=== PATIENT | male | born 1965 | race Caucasian/White ===

== ENCOUNTER 2020-02-11 08:38 | Day surgery (SDC) | payer MEDICAID, SELFPAY ==
[2020-02-10 13:33] VITALS: BMI 34.9
[2020-02-11 09:00] VITALS: BMI 34.9
[2020-02-11 10:47] VITALS: BP 124/73; PULSE 59; RESP 18; TEMP 36.4; O2SAT 96
[2020-02-11] MEDS: sodium chloride 0.9% 1,000 ML 30 ML IV (10:47)
--- NOTE | 2020-02-11 10:52 | ANES.PREANE2 ---
Pre-Anesthetic Assessment Pre-Anesthetic Assessment: Height/Weight: Height 1.93 m Weight 130.181 kg Temp Pulse Resp BP Pulse Ox 97.5 F L 59 L 18 124/73 96 02/11/20 10:47 02/11/20 10:47 02/11/20 10:47 02/11/20 10:47 02/11/20 10:47 Preop Diagnosis: Nausea and vomiting Proposed Procedure: Operation Date: 02/11/20 10:05 Proposed Procedures p EGD 29607 R11.2(Not Applicable) - Hay Henley MD Last intake: Intake Last Liquid Date 02/10/20 Last Liquid Time 22:00 Last Solid Date 02/10/20 Last Solid Time 22:00 Social: Social History: Tobacco and No alcohol Exam: Pre-Anes Outpt Exam: alert, oriented x 3, clear to auscultation bilaterally and regular rate & rhythm Airway: Submandibular: WNL Cervical ROM: WNL MP: 2 Dentition: False (upper and lower) History/ROS: No significant history except as noted Pulmonary: Pulmonary: COPD and LUIS CV/HEM: CV/HEM: HTN : : None reported Hepatic: Hepatic: None reported GI: Comments: N/V Metabolic: Metabolic: Hyperlipidemia and Morbid obesity Musc/skel: Musc/skel: Lower Back Pain Neuropsych: Neuropsych: Anxiety and Depression Anesthetic Plan: ASA status: 3 Anesthesia: Anesthesia Evaluation and MAC Risk of > 500 ml blood loss (7ml/kg in children): No Meds/Allergies Current Medications: Current Medications Generic Name Dose Route Start Last Admin Trade Name Freq PRN Reason Stop Dose Admin Sodium Chloride 1,000 mls @ 30 ml s/hr 02/11/20 09:00 02/11/20 10:47 Sodium Chloride 0.9% IV 30 mls/hr .Q24H NINA Administration PFSH Anesthesia PFSH: Medical History Anxiety Hyperlipidemia Hypertension Surgical History History of back surgery History of removal of cyst Status post colonoscopy Family History Mother Diabetes Brother Myocardial infarction Father Myocardial infarction Grandmother Stroke Grandfather Stroke Other Anesthesia complication Denies family history of Bleeding disorder Social History Smoking and tobacco status: current every day smoker Alcohol intake: never Lives independently: Yes Household members: none Current occupational status: disabled History of recent travel: No Data Anesthesia Cardiac Studies: No Data to Display
--- NOTE | 2020-02-11 11:49 | P.HP_ITS ---
Same Day Surgery H&P Indication for Procedure/HPI DATE OF PROCEDURE: February 11, 2020 CHIEF COMPLAINT/INDICATIONFOR SURGICAL PROCEDURE: nausea and vomiting PREOP DIAGNOSIS: Nausea and vomiting PLANNED PROCEDRUE: Operation Date: 02/11/20 10:05 Proposed Procedures p EGD 33733 R11.2(Not Applicable) - Hay Henley MD Medications/Allergies* Home Medications Medication Instructions Recorded Confirmed Type amlodipine 2.5 mg tablet 2.5 mg PO DAILY 12/09/19 02/11/20 History bisoprolol 10 1 tab PO DAILY 12/09/19 02/11/20 History mg-hydrochlorothiazide 6.25 mg tablet cyclobenzaprine 10 mg tablet 10 mg PO Q8H PRN tab 12/09/19 02/11/20 History fluoxetine 10 mg capsule 10 mg PO DAILY 12/09/19 02/11/20 History gabapentin 100 mg capsule 100 mg PO DAILY 12/09/19 02/11/20 History meloxicam 15 mg tablet 15 mg PO DAILY 12/09/19 02/11/20 History omega-3 fatty acids 1,250 mg 1,250 mg PO DAILY 12/09/19 02/11/20 History capsule pravastatin 80 mg tablet 80 mg PO DAILY 12/09/19 02/11/20 History Allergies/Adverse Reactions Allergy/AdvReac Type Severity Reaction Status Date / Time No Known Allergies Allergy Verified 02/11/20 08:54 Current Medications: Generic Name Dose Route Start Last Admin Trade Name Freq PRN Reason Stop Dose Admin Sodium Chloride 1,000 mls @ 30 mls/hr 02/11/20 09:00 02/11/20 10:47 Sodium Chloride 0.9% IV 30 mls/hr .Q24H NINA Administration Pertinent History/Comorbid Conditions* Medical History (Updated 12/09/19 @ 15:06 by Hay Henley MD) Anxiety Hyperlipidemia Hypertension Surgical History (Updated 12/09/19 @ 15:06 by Hay Henley MD) History of back surgery History of removal of cyst Status post colonoscopy Family History (Updated 12/09/19 @ 14:54 by MARIA ISABEL Brody) Diabetes Mother Myocardial infarction Brother Father Anesthesia complication Stroke Grandmother Grandfather Denies family history of Bleeding disorder Social History Smoking and tobacco status: current every day smoker Alcohol intake: never Lives independently: Yes Household members: none Current occupational status: disabled History of recent travel: No Pertinent Exam Findings alert, oriented x 3 and regular rate & rhythm Recommendations Surgery/Procedure today Coding Level of Care Code Acute Speech Correction Consultant for Madison Morillo
[2020-02-11 12:44] VITALS: BP 92/40; PULSE 65; RESP 18; TEMP 36.1; O2SAT 94
[2020-02-11 13:15] VITALS: BP 117/55; PULSE 61; RESP 18; O2SAT 95
== END 2020-02-11 13:20 | disposition home or self-care (01) ==
PROVIDERS: PCP Family Medicine; Visit Provider Surgery
PROC: 0DJ08ZZ Inspection of Upper Intestinal Tract, Via Natural or Artificial Opening Endoscopic (ICD-10-PCS; CPT 43235; principal; 2020-02-11 10:00)
DX: R11.2 Nausea with vomiting, unspecified (principal); K29.70 Gastritis, unspecified, without bleeding; J44.9 Chronic obstructive pulmonary disease, unspecified; I10 Essential (primary) hypertension; E78.5 Hyperlipidemia, unspecified; E66.01 Morbid (severe) obesity due to excess calories; Z68.34 Body mass index [BMI] 34.0-34.9, adult; F17.210 Nicotine dependence, cigarettes, uncomplicated
CPT/HCPCS: 43235; 12345; J2001; J2250; J2704; J7030

== ENCOUNTER 2020-04-15 10:52 | Emergency (ER) | payer MEDICAID, SELFPAY ==
[2020-04-15 11:09] VITALS: BMI 35.9
[2020-04-15 11:13] VITALS: BP 137/84; PULSE 70; RESP 18; TEMP 37.1; O2SAT 95
--- NOTE | 2020-04-15 11:23 | W.ED.GENADLT ---
HPI - General Adult General: Chief complaint: General Medical Stated complaint: NECK PAIN Time Seen by Provider: 04/15/20 11:18 History of Present Illness: HPI narrative: Patient comes in complain about the right side of his neck swelling over the last couple months off and on. Says he never cervical lead to his gums or his jaw or what it might be. Says it radiates from the back of his neck up to the front below the jawline. It was swelled yesterday but not so much today. Also complains about a chronic cough that is been going on for about 4 to 5 months. Patient is a 1 to 2 pack/day smoker. Denies any fever chills drainage are pain inside her shoulder in his mouth. complaint: Neck swelling Onset (ago): month(s) Location: neck (Right side) Radiation: non-radiation Severity: mild Severity scale (1-10): 4 Quality: dull Pain Consistency: intermittent Exacerbating factors: none Associated symptoms: Reports other (Patient does have chronic cough); Deny chest pain, dyspnea, headache(s), nausea, rash or vomiting Review of Systems Narrative: Patient complains about swelling in the right side of his neck intermittently for the last couple months. Denies any jaw or swelling or abscesses. Patient does not have any teeth. Const: Denies: fever(s), chills or body aches Eyes: Denies: change in vision or blurry vision ENMT: Denies: throat pain or nasal congestion Card: Denies: chest pain or dyspnea on exertion Resp: Reports: non-productive cough (Chronic for 4 to 5 months); Denies: dyspnea or productive cough GI: Denies: abdominal pain, nausea or vomiting : Denies: difficulty urinating Musc: Denies: extremity pain Skin/Breast: Denies: rash Neuro: Denies: headache(s) Psych: Denies: anxiety or depression José Luis/Lymph: Denies: easy bruising PFSH ED PFSH: Medical History (Updated 02/26/20 @ 07:38 by Hay Henley MD) Anxiety Gastritis determined by endoscopy Hyperlipidemia Hypertension Surgical History History of back surgery History of removal of cyst Status post colonoscopy Family History Mother Diabetes Brother Myocardial infarction Father Myocardial infarction Grandmother Stroke Grandfather Stroke Other Anesthesia complication Denies family history of Bleeding disorder Social History Smoking and tobacco status: current every day smoker Alcohol intake: never Lives independently: Yes Household members: none Current occupational status: disabled History of recent travel: No Physical Exam Const: COMMON NORMALS: no acute distress, average body habitus and patient oriented x3 HENMT: COMMON NORMALS: normocephalic HEAD & SCALP: normal to inspection and normocephalic FACE & SINUS: normal facial exam Eye: COMMON NORMALS: conjunctivae normal GENERAL EYE: appearance normal, both eyes and all related structures CONJUNCTIVA: Yes conjunctivae normal Neck/C-Spine: COMMON NORMALS: no JVD GENERAL: Yes normal visual inspection, Yes trachea midline, No anterior neck swelling, No lymphadenopathy, Yes tender (Slight posterior right-sided neck), No tracheal deviation, No submandibular swelling, No Meningeal signs present and No Mass present (neck) CERVICAL SPINE: Yes cervical ROM normal Chest: COMMONS NORMALS: normal inspection of the chest Resp: COMMON NORMALS: normal respiratory effort AUSCULTATION: rhonchi (Clears with cough) Cardio: COMMON NORMALS: no JVD, regular rate and regular rhythm RATE: regular rate RHYTHM: regular rhythm GI: COMMON NORMALS: Normal to inspection, nondistended, normoactive bowel sounds present Extremity: COMMON NORMALS: normal to inspection and full ROM Neuro: COMMON NORMALS: patient oriented x3 Course Vital Signs: Vital signs: Vital Signs Temperature 98.8 F 04/15/20 11:13 Pulse Rate 66 04/15/20 11:48 Respiratory Rate 14 04/15/20 11:48 Blood Pressure 122/78 04/15/20 11:48 Pulse Oximetry 95 04/15/20 11:48 Discharge Plan Discharge Prescriptions: No Action amlodipine 2.5 mg tablet 2.5 mg PO DAILY RF: 0 cyclobenzaprine 10 mg tablet 10 mg PO Q8H PRN (Reason: Muscle Spasm) RF: 0 omega-3 fatty acids 1,250 mg capsule 1,250 mg PO DAILY RF: 0 gabapentin 100 mg capsule 100 mg PO DAILY RF: 0 pravastatin 80 mg tablet 80 mg PO DAILY RF: 0 fluoxetine 10 mg capsule 10 mg PO DAILY RF: 0 bisoprolol-hydrochlorothiazide 10-6.25 mg tablet 1 tab PO DAILY RF: 0 meloxicam 15 mg tablet 15 mg PO DAILY RF: 0 Protonix 40 mg tablet,delayed release (DR/EC) 40 mg PO DAILY 42 Days RF: 3 Coding Level of Care Code ED [employer] Print[employer] Supervisor for [place] Fwd Exam Comprehensive
--- NOTE | 2020-04-15 11:32 | CTR_ITS ---
PROCEDURE INFORMATION: Exam: CT Neck Without Contrast Exam date and time: 04/15/2020 11:38 AM Age: 54 years old Clinical indication: Other: Right side neck swelling; Additional info: Right side swelling TECHNIQUE: Imaging protocol: Computed tomography images of the neck without contrast. Radiation optimization: All CT scans at this facility use at least one of these dose optimization techniques: automated exposure control; mA and/or kV adjustment per patient size (includes targeted exams where dose is matched to clinical indication); or iterative reconstruction. COMPARISON: CR Cervical Spine AP/Lat* [id number] 02/26/2017 3:35 PM RADIATION DOSE METRICS: Total DLP (mGy-cm): 963.34 FINDINGS: Brain: The canceling machine operator space is normal. Visualized portions of the brain and orbits are normal. Nasopharynx: fossa of Rosenmuller is normal. Oropharynx: parapharyngeal space normal. Hypopharynx: Piriform sinus is unremarkable. Larynx: the epiglottis, preepiglottic fat and the aryepiglottic folds are normal. The true cords appear normal. Retropharyngeal space: Unremarkable. Submandibular/Parotid glands: submental and submandibular regions are normal. the carotid and parotid spaces are normal. Atrophic left submandibular gland Thyroid: the thyroid gland, the thoracic inlet, the posterior triangles are normal. Lymph nodes: Numerous small nonspecific lymph nodes in the various spaces of the neck. Trachea: Visualized trachea is unremarkable. Lungs: Subtle subpleural nodular density right upper lobe. 4 mm. Follow-up CT chest suggested. Bones/joints: No acute osseous abnormality. Degenerative changes within the cervical spine Soft tissues: Emphysema both paraseptal and centrilobular. Other findings: precervical space is normal. CT/CT neck wo con [id number] IMPRESSION: 1. No appreciable inflammatory process within the neck. Impression. Consider follow-up with IV contrast if indicated. 2. Emphysema both paraseptal and centrilobular. 3. Subtle subpleural nodular density right upper lobe. 4 mm. Follow-up CT chest suggested. Radiation Dose CTDIVOL = (mGy): DLP = 963.34 (mGy-cm)
--- NOTE | 2020-04-15 11:33 | XRR_ITS ---
PROCEDURE INFORMATION: Exam: XR Chest, 1 View Exam date and time: 04/15/2020 12:12 PM Age: 54 years old Clinical indication: Shortness of breath and other: Neck pain, weakness; Patient HX: C/O shortness of breath; Neck pain, weakness; Additional info: Chronic cough TECHNIQUE: Imaging protocol: XR of the chest Views: 1 view. COMPARISON: CR Chest 1 [place] [id number] 04/26/2018 6:59 PM FINDINGS: Lungs: Subtle/mild interstitial airspace disease right lung base. Emphysema Pleural space: Unremarkable. No pleural effusion. No pneumothorax. Heart/Mediastinum: Unremarkable. No cardiomegaly. Bones/joints: Unremarkable. XR/XR chest 1V portable [id number] IMPRESSION: Subtle/mild interstitial airspace disease right lung base. Recommend short-term follow-up two view chest. If persistent, CT.
[2020-04-15 11:48] VITALS: BP 122/78; PULSE 66; RESP 14; O2SAT 95
--- NOTE | 2020-04-15 12:18 | PC.NURSE ---
vo with readback from [facility] provider to hold toradol 60mg im until instructed to adm.
[2020-04-15 13:00] VITALS: BP 134/87; PULSE 63; RESP 16; O2SAT 96
--- NOTE | 2020-04-15 13:03 | CTR_ITS ---
PROCEDURE INFORMATION: Exam: CT Neck With Contrast Exam date and time: 04/15/2020 1:07 PM Age: 54 years old Clinical indication: Mass, lump, or swelling in neck; Patient HX: Swelling of right side of neck; Additional info: Neck swelling TECHNIQUE: Imaging protocol: Computed tomography images of the neck with intravenous contrast. Radiation optimization: All CT scans at this facility use at least one of these dose optimization techniques: automated exposure control; mA and/or kV adjustment per patient size (includes targeted exams where dose is matched to clinical indication); or iterative reconstruction. Contrast material: OMNI 300; Contrast volume: 75 ml; Contrast route: INTRAVENOUS (IV); COMPARISON: CT neck wo con [id number] 04/15/2020 12:07 PM RADIATION DOSE METRICS: Total DLP (mGy-cm): 648.1 FINDINGS: Nasopharynx: Unremarkable. Oropharynx: Unremarkable. No significant tonsillar enlargement. Hypopharynx: Unremarkable. Larynx: Unremarkable. Normal epiglottis. Retropharyngeal space: Unremarkable. Submandibular/Parotid glands: There is asymmetric enlargement, and heterogeneous increased attenuation of, the right parotid gland compared to the left. There are associated small nodules within the parotid gland which may be due lymph nodes. No fluid collections. Asymmetric location of the submandibular glands, but no inflammatory changes present. Thyroid: Not enlarged. No nodules or cysts. Lymph nodes: No pathologically enlarged lymph nodes. Trachea: Visualized trachea is unremarkable. Lungs: Emphysema, more so on the right. Bones/joints: No acute osseous abnormality. Soft tissues: No acute soft tissue abnormality. CT/CT neck w con* [id number] IMPRESSION: Asymmetric enlargement , and heterogeneity, of the right parotid gland. Conceivably this could be due to an acute or chronic inflammatory process. Is this the location of the palpable swelling? Is there pain and tenderness? Radiation Dose CTDIVOL = (mGy): DLP = 648.1 (mGy-cm)
--- NOTE | 2020-04-15 13:03 | CTR_ITS ---
PROCEDURE INFORMATION: Exam: CT Chest With Contrast Exam date and time: 04/15/2020 1:07 PM Age: 54 years old Clinical indication: Abnormal findings; Abnormal radiologic exam of lung or chest; Patient HX: Lesion seen on non contrast CT of neck. ; Additional info: 4mm sub pleural lesion rul TECHNIQUE: Imaging protocol: Computed tomography of the chest with intravenous contrast. Radiation optimization: All CT scans at this facility use at least one of these dose optimization techniques: automated exposure control; mA and/or kV adjustment per patient size (includes targeted exams where dose is matched to clinical indication); or iterative reconstruction. Contrast material: Omnipaque 300; Contrast volume: 75 ml; Contrast route: INTRAVENOUS (IV); COMPARISON: CR XR chest 1V portable [id number] 04/15/2020 12:00 PM RADIATION DOSE METRICS: Total DLP (mGy-cm): 1067.99 FINDINGS: Thyroid: The partially imaged bilateral thyroid lobes are unremarkable. Lungs: A 4.4 mm noncalcified pulmonary nodule is noted in the for anterior apical segment of the right upper lobe (LOC -63). Posterior subpleural low-density 4.8 x 5.5 mm nodule left upper lobe posterior segment (LOC -163). Additional left lower lobe noncalcified nodules in the anterolateral basilar segment measuring 3.4 mm (LOC -198), 7.2 x 3.1 mm (LOC -208), 3.0 mm (LOC -208). Right upper lobe anterior segment noncalcified nodule measuring 3.5 mm (LOC -138). Right apical and superior segment right lower lobe predominant bilateral mild paraseptal and centrilobular pulmonary emphysema. Right lower lobe calcified pulmonary parenchymal granuloma. Pleural space: No pneumothorax. No pleural effusion. Heart: Unremarkable. No cardiomegaly. No pericardial effusion. Aorta: Unremarkable. No aortic aneurysm. Lymph nodes: No enlarged lymph nodes. Kidneys and ureters: Moderate left, mild right renal upper pole cortical scarring. Bones/joints: Mild leftward upper thoracic spinal curvature. Thoracic spine vertebral body marginal osteophytes are noted at multiple levels. Diffuse osteopenia. Moderate chronic T12 vertebral body compression deformity. Soft tissues: Unremarkable. CT/CT chest w con* [id number] IMPRESSION: 1. Noncalcified small bilateral pulmonary nodules. For patients at low risk (minimal or absent history of smoking and of other known risk factors), no routine follow-up is indicated. For patients at high risk (history of smoking or of other known risk factors), consider optional CT at 12 months. (Shabana et al., Fleischner Society, 2017). 2. Pulmonary emphysema. 3. Bilateral renal upper pole cortical scarring. Radiation Dose CTDIVOL = (mGy): DLP = 1067.99 (mGy-cm)
[2020-04-15 13:26] LABS: Basophils % 0.4 %; Eosinophils # 0.3 10^3/uL (0.0-0.8); Eosinophils % 2.8 %; Hematocrit 46.8 % (42.0-52.0); Lymphocytes # 2.5 10^3/uL (0.8-4.8); Mean Corpuscular HGB Conc 32.1 g/dL (30.0-36.0); Mean Corpuscular Hemoglobin 30.9 pg (28.0-34.0); Mean Corpuscular Volume 96.5 fL (80-94); Mean Platelet Volume 10.8 fL (7.4-10.4); Monocytes # 0.7 10^3/uL (0.2-0.9); Monocytes % 6.9 %; Neutrophils # 5.88 10^3/uL (1.8-7.7); Neutrophils % 62.7 %; Nucleated Red Blood Cells % 0 %; Platelet Count 228 10^3/cmm (130-400); Red Blood Count 4.85 10^6/uL (4.1-5.3); White Blood Count 9.4 10^3/uL (4.0-10.0)
[2020-04-15 13:40] LABS: Alanine Aminotransferase 24 U/L (0-41); Albumin Level 4.3 g/dL (3.5-5.2); Alkaline Phosphatase 94 IU/L (40-130); Anion Gap 12.1 (5-19); Aspartate Amino Transferase 33 U/L (0-40); Blood Urea Nitrogen 11 mg/dL (6-20); Calcium 9.2 mg/dL (8.5-10.5); Carbon Dioxide 29 mmol/L (22-29); Chloride 100 mmol/L (98-107); Globulin 3.1 g/dL (1.3-4.6); Glomerular Filtration Rate 88.6 mL/min (90-130); Glucose 97 mg/dL (65-115); Osmolality Calculated 280 mOsm/kg (285-295); Potassium 4.1 mmol/L (3.5-5.1); Sodium 137 mmol/L (136-145); Total Bilirubin 0.4 mg/dL (0.15-1.2); Total Protein 7.4 g/dL (6.6-8.7)
[2020-04-15] MEDS: iohexol 300 mg/mL 100 mL Btl IV ×2 (13:45→13:46)
[2020-04-15 14:29] VITALS: BP 143/100; PULSE 59; RESP 16; O2SAT 100
== END 2020-04-15 15:07 | disposition home or self-care (01) ==
PROVIDERS: Emergency Provider Nurse Practitioner Family; PCP Family Medicine
DX: M54.2 Cervicalgia (principal); I10 Essential (primary) hypertension; E78.5 Hyperlipidemia, unspecified; F17.210 Nicotine dependence, cigarettes, uncomplicated
CPT/HCPCS: 12345; 36415; 70490; 70491; 71045; 71260; 80053; 85025; 99282; 99283; Q9967

== ENCOUNTER 2020-08-12 08:41 | Outpatient (CLI) | payer MEDICAID, SELFPAY ==
--- NOTE | 2020-08-12 08:47 | CT_ITS ---
WS: [id number] CT scan of the neck. Additional two-dimensional coronal and sagittal reconstruction was performed. Clinical Data: PAROTID GLAND SWELLING Comparison: CT neck, 04/15/2020. DLP: 2040.[address] scans at [facility] use at least one of these dose optimization techniques: automat ed exposure control; mA and/or kV adjustment per patient size (includes targeted exams where dose is matched to clinical indication); or iterative reconstruction. Findings: The patient does have asymmetric enlargement of the right parotid gland. There are lymph nodes within the parotid glands. No lymphadenopathy is noted. The remainder of the salivary glands is unremarkabl e. There is no prevertebral soft tissue swelling. The larynx is symmetric. The thyroid gland shows no rmal enhancement. The floor of the mouth and parapharyngeal spaces are normal. The oral cavity is unr emarkable. The carotid arteries bifurcate normally. Vertebral arteries are normal. The cervical spine shows oste oarthritis at C5-C7 with loss of normal lordotic curvature. The lung apices show no abnormalities. Th e portions of the intracranial circulation which are seen demonstrate no abnormalities. Mild ventricu lar dilatation is present with no shift. No erosion of the skull or skull base is seen. The mastoid a ir cells, internal auditory canals, sella turcica, paranasal sinuses and intraorbital contents are no nremarkable. CT/CT neck w con* [id number] Impression: 1. Slight asymmetric enlargement of right parotid gland which could indicate pa rotid infection. No change from before is seen. 2. No other abnormalities are seen.
== END 2020-08-12 08:42 | disposition home or self-care (01) ==
LOC: RADWPI 08:43
PROVIDERS: PCP Nurse Practitioner Family; Visit Provider Nurse Practitioner Family
DX: K11.8 Other diseases of salivary glands (principal); E78.5 Hyperlipidemia, unspecified; I10 Essential (primary) hypertension
CPT/HCPCS: 70491; Q9967

== ENCOUNTER → 2020-10-22 11:06 | Outpatient (BNVA) | payer MEDICAID, SELFPAY | PROVIDERS: PCP Nurse Practitioner Family; Visit Provider Nurse Practitioner Family | DX: M25.521 Pain in right elbow (principal); M25.531 Pain in right wrist | CPT/HCPCS: 73080; 73110 ==

== ENCOUNTER 2020-10-25 21:30 | Emergency (ER) | payer MEDICAID, SELFPAY ==
[2020-10-25 21:54] VITALS: BP 144/90; PULSE 66; RESP 14; TEMP 36.3; O2SAT 98; BMI 36.0
[2020-10-25 23:26] LABS: Basophils # 0.1 10^3/uL (0.0-0.1); Basophils % 0.5 %; Eosinophils # 0.4 10^3/uL (0.0-0.8); Eosinophils % 2.4 %; Hematocrit 49.2 % (42.0-52.0); Hemoglobin 15.8 g/dL (11.7-16.6); Lymphocytes # 2.5 10^3/uL (0.8-4.8); Lymphocytes % 17.2 %; Mean Corpuscular HGB Conc 32.1 g/dL (30.0-36.0); Mean Corpuscular Volume 96.5 fL (80-94); Monocytes # 0.7 10^3/uL (0.2-0.9); Monocytes % 4.4 %; Neutrophils # 10.96 10^3/uL (1.8-7.7); Nucleated Red Blood Cells % 0 %; Platelet Count 242 10^3/cmm (130-400); Red Cell Distribution Width 14.4 % (12.1-15.1); White Blood Count 14.6 10^3/uL (4.0-10.0)
[2020-10-26 00:14] LABS: Alanine Aminotransferase 19 U/L (0-41); Albumin Level 4.3 g/dL (3.5-5.2); Alkaline Phosphatase 106 IU/L (40-130); Aspartate Amino Transferase 20 U/L (0-40); Blood Urea Nitrogen 15 mg/dL (6-20); Carbon Dioxide 25 mmol/L (22-29); Chloride 100 mmol/L (98-107); Globulin 3.7 g/dL (1.3-4.6); Glomerular Filtration Rate 101.5 mL/min (90-130); Glucose 122 mg/dL (65-115); Lipase 27 U/L (13-60); Osmolality Calculated 286 mOsm/kg (285-295); Sodium 137 mmol/L (136-145); Total Bilirubin 0.3 mg/dL (0.15-1.2)
--- NOTE | 2020-10-26 00:14 | CTR_ITS ---
PROCEDURE INFORMATION: Exam: CT Abdomen And Pelvis With Contrast Exam date and time: 10/26/2020 12:26 AM Age: 54 years old Clinical indication: Abdominal pain; Localized; Left lower quadrant (llq); Patient HX: C/O llq abd pain TECHNIQUE: Imaging protocol: Computed tomography of the abdomen and pelvis with intravenous contrast. Radiation optimization: All CT scans at this facility use at least one of these dose optimization techniques: automated exposure control; mA and/or kV adjustment per patient size (includes targeted exams where dose is matched to clinical indication); or iterative reconstruction. Contrast material: OMNI 300; Contrast volume: 95 ml; Contrast route: INTRAVENOUS (IV); COMPARISON: US gall bladder [id number] 04/26/2018 8:25 PM RADIATION DOSE METRICS: Total DLP (mGy-cm): 1836.5 FINDINGS: Liver: Normal. No mass. Gallbladder and bile ducts: Normal. No calcified stones. No ductal dilation. Pancreas: Normal. No ductal dilation. Spleen: Multiple calcifications are seen within the spleen compatible with calcified granulomas. Adrenal glands: Normal. No mass. Kidneys and ureters: Strandy opacities are seen in the left perinephric fascia compatible with some inflammatory changes. There is moderate hydronephrosis and hydroureter seen on the left. There are strandy opacities adjacent to the left ureter compatible with inflammatory changes as well. There is a partially obstructing 2.6 mm distal left ureteral calculus seen at the level of the ureterovesical junction. Stomach and bowel: Unremarkable. No obstruction. No mucosal thickening. Appendix: The appendix is visualized and is normal in configuration. Intraperitoneal space: Unremarkable. No free air. No significant fluid collection. Vasculature: Unremarkable. No abdominal aortic aneurysm. Lymph nodes: Unremarkable. No enlarged lymph nodes. Urinary bladder: Unremarkable as visualized. Reproductive: Unremarkable as visualized. Bones/joints: There is diffuse degenerative disc disease of the thoracolumbar spine. Mild 4.6 mm anterior spondylolisthesis seen at the L4-L5 level likely secondary to the degenerative disc disease and laxity of the longitudinal ligaments. Soft tissues: There are small bilateral inguinal hernias containing fat, left larger than right. CT/CT abdomen pelvis w con* [id number] IMPRESSION: There is a partially obstructing 2.6 mm distal left ureteral calculus at the level of the ureterovesical junction. COMMENTS: Consistent with the [employer]'s Incidental Findings Committee white paper (J Am Peggy Radiol 2018): Any incidental renal lesion less than 1 cm or classified as too small to characterize, or any incidental cystic renal lesion characterized as simple-appearing, is likely benign. No follow-up imaging is recommended for these lesions per consensus recommendations based on imaging criteria. Radiation Dose CTDIVOL = (mGy): DLP = 1836.5 (mGy-cm)
--- NOTE | 2020-10-26 00:17 | ED_ITS ---
HPI - Abdominal Pain General: Chief Complaint: Abdominal Pain Stated Complaint: lower abdominal pain into left side last 2 days Time Seen by Provider: 10/26/20 00:10 Source: patient Mode of arrival: ambulatory Limitations: no limitations History of Present Illness: HPI narrative: 54-year-old male states he had left lower quadrant abdominal pain over the last day. He states it is very sharp in nature and worse with movement. He has had some nausea but denies any vomiting. Has had slight constipation. Denies any fevers. No history of blood in his stools. He denies any history of diverticulitis in the past. Onset (ago): hour(s) Location: LLQ Severity: moderate Quality: stabbing Associated Symptoms: Denies chills, diarrhea, dysuria, fever(s), nausea and vomiting Review of Systems Const: Denies: fever(s), chills, body aches or change in appetite Eyes: Denies: blurry vision or eye discomfort ENMT: Denies: throat pain or dental pain Card: Denies: chest pain Resp: Denies: dyspnea GI: Reports: abdominal pain; Denies: nausea, vomiting or diarrhea : Denies: dysuria Musc: Denies: neck pain or back pain Skin/Breast: Denies: rash Neuro: Denies: headache(s) Psych: Denies: depression José Luis/Lymph: Denies: easy bruising All/Imm: Denies: urticaria PFSH ED PFSH: Medical History (Updated 10/26/20 @ 01:18 by Andrew Jones MD) Anxiety Gastritis determined by endoscopy Hyperlipidemia Hypertension Surgical History History of back surgery History of removal of cyst Status post colonoscopy Family History Mother Diabetes Brother Myocardial infarction Father Myocardial infarction Grandmother Stroke Grandfather Stroke Other Anesthesia complication Denies family history of Bleeding disorder Social History Smoking and tobacco status: current every day smoker Alcohol intake: never Lives independently: Yes Household members: none Current occupational status: disabled History of recent travel: No Physical Exam Const: COMMON NORMALS: no acute distress, patient oriented x3 and healthy appearing HENMT: COMMON NORMALS: normocephalic and atraumatic HEAD & SCALP: normocephalic and atraumatic Eye: COMMON NORMALS: Equal, round and reactive pupils present and EOMs intact bilaterally PUPIL: Yes Equal, round and reactive pupils present Neck/C-Spine: COMMON NORMALS: full ROM and supple Chest: COMMONS NORMALS: normal inspection of the chest and normal palpation of entire chest wall Resp: COMMON NORMALS: normal respiratory effort, No retractions, No use of accessory muscles and clear to auscultation bilaterally AUSCULTATION: clear to auscultation bilaterally Cardio: COMMON NORMALS: regular rate, regular rhythm and No murmurs present (Cardio) RATE: regular rate RHYTHM: regular rhythm GI: COMMON NORMALS: Normal to inspection, nondistended, normoactive bowel sounds present, Soft to palpation and no masses PALPATION: Yes Soft to palpation and Yes Tenderness to palpation present (GI) Details: LLQ Extremity: COMMON NORMALS: normal to inspection and full ROM Neuro: COMMON NORMALS: patient oriented x3, moves all extremities and no focal motor deficits Psych: COMMON NORMALS: mental status grossly normal, Normal thought process present and cooperative THOUGHT PROCESS: Normal thought process present Skin: COMMON NORMALS: no rashes or lesions noted and no wounds GENERAL SKIN EXAM: no rashes or lesions noted Course Vital Signs: Vital signs: Vital Signs Temperature 97.3 F L 10/25/20 21:54 Pulse Rate 66 10/25/20 21:54 Respiratory Rate 14 10/25/20 21:54 Blood Pressure 144/90 10/25/20 21:54 Pulse Oximetry 98 10/25/20 21:54 MDM - Abdominal Pain MDM Narrative: Medical decision making narrative: Justin presents here with left-sided pain CT shows kidney stone likely causing his pain. Patient is well- appearing here and pain is improved. Will discharge him with a urine strainer and he is to follow-up with Dr. Hurd. He is return if worsening. He understands and agrees the plan. Lab Data: Labs: Lab Results 10/25/20 10/25/20 Range/Units 23:10 23:10 WBC 14.6 H (4.0-10.0) 10^3/ uL RBC 5.10 (4.1-5.3) 10^6/u L Hgb 15.8 (11.7-16.6) g/dL Hct 49.2 (42.0-52.0) % MCV 96.5 H (80-94) fL MCH 31.0 (28.0-34.0) pg MCHC 32.1 (30.0-36.0) g/dL RDW 14.4 (12.1-15.1) % Plt Count 242 (130-400) 10^3/c mm MPV 11.0 H (7.4-10.4) fL Neut % (Auto) 75.0 % Lymph % (Auto) 17.2 % [place] % (Auto) 4.4 % Eos % (Auto) 2.4 % Baso % (Auto) 0.5 % Neut # (Auto) 10.96 H (1.8-7.7) 10^3/u L Lymph # (Auto) 2.5 (0.8-4.8) 10^3/u L [place] # (Auto) 0.7 (0.2-0.9) 10^3/u L Eos # (Auto) 0.4 (0.0-0.8) 10^3/u L Baso # (Auto) 0.1 (0.0-0.1) 10^3/u L Nucleated RBC % (a uto) 0 % Nucleated RBCs # 0.0 /100WBC Sodium 137 (136-145) mmol/L Potassium 4.0 (3.5-5.1) mmol/L Chloride 100 (98-107) mmol/L Carbon Dioxide 25 (22-29) mmol/L Anion Gap 16.0 (5-19) BUN 15 (6-20) mg/dL Creatinine 0.8 (0.7-1.2) mg/dL GFR Calculation 101.5 (90-130) mL/min Glucose 122 H (65-115) mg/dL Calculated Osmolal ity 286 (285-295) mOsm/k g Calcium 10.0 (8.5-10.5) mg/dL Total Bilirubin 0.3 (0.15-1.2) mg/dL AST 20 (0-40) U/L ALT 19 (0-41) U/L Alkaline Phosphata se 106 (40-130) IU/L Total Protein 8.0 (6.6-8.7) g/dL Albumin 4.3 (3.5-5.2) g/dL Globulin 3.7 (1.3-4.6) g/dL Lipase 27 (13-60) U/L Imaging Data ^: CT Abd/Pel: Radiologist's impression: [address] [address] [address] Scan Report Signed Patient: Justin Kelsey Unit #: [id number] : 1965 Age/Sex: 54 / M ADM Date: 10/25/20 Loc: ER Room/Bed: Attending Dr: Ordering Provider/Ordering MD: Andrew Jones MD Date of Service: 10/26/20 Procedure(s): CT abdomen pelvis w con* [id number] Accession Number(s): [id number] Report Number: [id number] PROCEDURE INFORMATION: Exam: CT Abdomen And Pelvis With Contrast Exam date and time: 10/26/2020 12:26 AM Age: 54 years old Clinical indication: Abdominal pain; Localized; Left lower quadrant (llq); Patient HX: C/O llq abd pain TECHNIQUE: Imaging protocol: Computed tomography of the abdomen and pelvis with intravenous contrast. Radiation optimization: All CT scans at this facility use at least one of these dose optimization techniques: automated exposure control; mA and/or kV adjustment per patient size (includes targeted exams where dose is matched to clinical indication); or iterative reconstruction. Contrast material: OMNI 300; Contrast volume: 95 ml; Contrast route: INTRAVENOUS (IV); COMPARISON: US gall bladder [id number] 04/26/2018 8:25 PM RADIATION DOSE METRICS: Total DLP (mGy-cm): 1836.5 FINDINGS: Liver: Normal. No mass. Gallbladder and bile ducts: Normal. No calcified stones. No ductal dilation. Pancreas: Normal. No ductal dilation. Spleen: Multiple calcifications are seen within the spleen compatible with calcified granulomas. Adrenal glands: Normal. No mass. Kidneys and ureters: Strandy opacities are seen in the left perinephric fascia compatible with some inflammatory changes. There is moderate hydronephrosis and hydroureter seen on the left. There are strandy opacities adjacent to the left ureter compatible with inflammatory changes as well. There is a partially obstructing 2.6 mm distal left ureteral calculus seen at the level of the ureterovesical junction. Stomach and bowel: Unremarkable. No obstruction. No mucosal thickening. Appendix: The appendix is visualized and is normal in configuration. Intraperitoneal space: Unremarkable. No free air. No significant fluid collection. Vasculature: Unremarkable. No abdominal aortic aneurysm. Lymph nodes: Unremarkable. No enlarged lymph nodes. Urinary bladder: Unremarkable as visualized. Reproductive: Unremarkable as visualized. Bones/joints: There is diffuse degenerative disc disease of the thoracolumbar spine. Mild 4.6 mm anterior spondylolisthesis seen at the L4-L5 level likely secondary to the degenerative disc disease and laxity of the longitudinal ligaments. Soft tissues: There are small bilateral inguinal hernias containing fat, left larger than right. CT/CT abdomen pelvis w con* [id number] IMPRESSION: There is a partially obstructing 2.6 mm distal left ureteral calculus at the level of the ureterovesical junction. COMMENTS: Consistent with the [employer]'s Incidental Findings Committee white paper (J Am Peggy Radiol 2018): Any incidental renal lesion less than 1 cm or classified as too small to characterize, or any incidental cystic renal lesion characterized as simple-appearing, is likely benign. No follow-up imaging is recommended for these lesions per consensus recommendations based on imaging criteria. Discharge Plan Discharge Patient Disposition: Home Clinical Impression: Kidney stone on left side Condition: Stable Prescriptions: [place] 5-325 mg tablet 1 tab PO Q6H PRN (Reason: pain) Qty: 14 RF: 0 ondansetron 4 mg tablet,disintegrating 4 mg PO Q6H PRN (Reason: nausea and vomiting) Qty: 14 RF: 0 No Action amlodipine 2.5 mg tablet 2.5 mg PO DAILY RF: 0 cyclobenzaprine 10 mg tablet 10 mg PO Q8H PRN (Reason: Muscle Spasm) RF: 0 omega-3 fatty acids 1,250 mg capsule 1,250 mg PO DAILY RF: 0 gabapentin 100 mg capsule 100 mg PO DAILY RF: 0 pravastatin 80 mg tablet 80 mg PO DAILY RF: 0 fluoxetine 10 mg capsule 10 mg PO DAILY RF: 0 bisoprolol-hydrochlorothiazide 10-6.25 mg tablet 1 tab PO DAILY RF: 0 meloxicam 15 mg tablet 15 mg PO DAILY RF: 0 Protonix 40 mg tablet,delayed release (DR/EC) 40 mg PO DAILY 30 Days Qty: 30 RF: 3 Discharge Orders: Discharge ED (Routine); Ordered 10/26/20 Ordered By: Andrew Jones Referrals: Amado Hurd MD [Physician] - 1-3 days Jacqueline Almeida FNP [Primary Care Provider] - Discharge Diet: Advance as tolerated Discharge Activity: Resume usual activity Patient Instructions: Kidney Stones (ED) Coding Level of Care Code ED Topline Beading Machine Tender for Chg Fwd Exam Comprehensive
[2020-10-26] MEDS: ondansetron 2 mg/ML SDV 2 mL 4 MG IVP (00:30)
[2020-10-26] MEDS: morphine 4 mg/mL SDV 1 mL IVP (00:31)
[2020-10-26] MEDS: iohexol 300 mg/mL 100 mL Btl IV (00:40)
[2020-10-26] MEDS: HYDROmorphone 1 mg/mL INJ 1 mL IVP (01:38)
[2020-10-26] MEDS: ketorolac 30 mg/mL INJ 15 MG IVP (01:39)
[2020-10-26 02:27] VITALS: BP 145/92; PULSE 62; RESP 18; O2SAT 99
--- NOTE | 2020-10-26 16:18 | DCPLANNER ---
manager package had message to schedule a follow up appointment for patient with Dr. Hurd. manager package called the office of Dr. Hurd, spoke with Celeste, gave clinic patients information. manager package was told that patients information would be printed and reviewed. Clinic will call patient with appointment information.
--- NOTE | 2020-10-30 08:28 | DCPLANNER ---
Patient has a follow up appointment scheduled for Monday, November 04, 2020 at 3:[address] Hurd.
--- NOTE | 2020-12-09 15:04 | DCPLANNER ---
Patient had a follow up appointment scheduled for 11.04.[address] Hurd - patient did attend appointment.
== END 2020-10-26 02:27 | disposition home or self-care (01) ==
PROVIDERS: Emergency Provider Emergency Medicine; PCP Nurse Practitioner Family
DX: N20.0 Calculus of kidney (principal); E78.5 Hyperlipidemia, unspecified; I10 Essential (primary) hypertension; F17.210 Nicotine dependence, cigarettes, uncomplicated
CPT/HCPCS: 12345; 36415; 74177; 80053; 83690; 85025; 96374; 96375; 99282; 99283; J1170; J1885; J2270; J2405; Q9967

== ENCOUNTER 2020-10-28 11:51 | Outpatient (CLI) | payer MEDICAID, SELFPAY ==
--- NOTE | 2020-10-28 12:00 | XR_ITS ---
WS: [id number] Exam: XR KUB [id number] Date/Time of Exam: 10/28/2020 12:00 PM Reason For Exam: KIDNEY STONE No bowel obstruction or free air. No calcifications noted in the region of the kidneys. Splenic calci fications. No suspicious pelvic calcifications noted. Visualized organ margins are intact. XR/XR KUB [id number] IMPRESSION: 1. No acute abdominal finding. 2. No calcifications identified in the region of the kidneys.
== END 2020-10-28 11:52 | disposition home or self-care (01) ==
PROVIDERS: PCP Nurse Practitioner Family; Visit Provider Urology
DX: N20.0 Calculus of kidney (principal)
CPT/HCPCS: 74018; 81003

== ENCOUNTER 2020-11-09 08:29 | Outpatient (CLI) | payer MEDICAID, SELFPAY ==
--- NOTE | 2020-11-09 08:39 | XRR_ITS ---
PROCEDURE INFORMATION: Exam: XR Abdomen, 1 View Exam date and time: 11/09/2020 8:41 AM Age: 54 years old Clinical indication: Condition or disease; Kidney or ureter condition; Calculus (stone) in kidney; Additional info: Kidney stone TECHNIQUE: Imaging protocol: XR of the abdomen. Views: Frontal supine view of the abdomen. 1 View. COMPARISON: 1. CR XR KUB [id number] 10/28/2020 12:[address] abdomen pelvis w con* [id number] 10/26/2020 12:30:18 AM FINDINGS: Gastrointestinal tract: Unremarkable. No bowel dilation. Organs: Left ureterovesical junction demonstrated on prior CT study not definitely identified. No upper urinary tract calcifications identified. Bones/joints: Bilateral lower lumbar facet primary osteoarthritis. Lumbar spine vertebral body marginal osteophytes are noted at multiple levels. XR/XR KUB [id number] IMPRESSION: Left ureterovesical junction demonstrated on prior CT study not definitely identified.
== END 2020-11-09 08:30 | disposition home or self-care (01) ==
LOC: RAD 08:30
PROVIDERS: PCP Nurse Practitioner Family; Visit Provider Urology
DX: N20.0 Calculus of kidney (principal)
CPT/HCPCS: 74018

== ENCOUNTER → 2020-11-13 13:25 | Outpatient (BNVA) | payer MEDICAID, SELFPAY | PROVIDERS: PCP Nurse Practitioner Family; Visit Provider Nurse Practitioner Family | DX: M25.342 Other instability, left hand (principal) | CPT/HCPCS: 73130 ==

== ENCOUNTER → 2020-11-23 13:55 | Outpatient (BNVA) | payer MEDICAID, SELFPAY | PROVIDERS: PCP Nurse Practitioner Family; Referring Provider Nurse Practitioner Family; Visit Provider Specialist | DX: S62.653A Nondisplaced fracture of middle phalanx of left middle finger, initial encounter for closed fracture (principal); X58.XXXA Exposure to other specified factors, initial encounter | CPT/HCPCS: 73140 ==

== ENCOUNTER 2020-11-23 14:33 | Outpatient (CLI) | payer MEDICAID, SELFPAY | END 2020-11-23 14:34 | disposition home or self-care (01) | LOC: SPT 14:42 | PROVIDERS: PCP Nurse Practitioner Family; Visit Provider Specialist | DX: Z46.89 Encounter for fitting and adjustment of other specified devices (principal); S62.653D Nondisplaced fracture of middle phalanx of left middle finger, subsequent encounter for fracture with routine healing; X58.XXXD Exposure to other specified factors, subsequent encounter | CPT/HCPCS: L3807 ==

== ENCOUNTER → 2020-12-03 10:32 | Outpatient (BNVA) | payer MEDICAID, SELFPAY | PROVIDERS: PCP Nurse Practitioner Family; Visit Provider Specialist | DX: S62.653A Nondisplaced fracture of middle phalanx of left middle finger, initial encounter for closed fracture (principal); X58.XXXA Exposure to other specified factors, initial encounter | CPT/HCPCS: 73140 ==

== ENCOUNTER → 2020-12-31 10:47 | Outpatient (BNVA) | payer MEDICAID, SELFPAY | PROVIDERS: PCP Nurse Practitioner Family; Visit Provider Specialist | DX: S62.653A Nondisplaced fracture of middle phalanx of left middle finger, initial encounter for closed fracture (principal); X58.XXXA Exposure to other specified factors, initial encounter | CPT/HCPCS: 73140 ==

== ENCOUNTER → 2021-03-02 14:22 | Outpatient (BNVA) | payer MEDICAID, SELFPAY | PROVIDERS: PCP Nurse Practitioner Family; Visit Provider Podiatrist Foot & Ankle Surgery | DX: M79.671 Pain in right foot (principal) | CPT/HCPCS: 73630; 87070; 87075; 87205 ==

== ENCOUNTER 2021-03-04 10:00 | Outpatient (CLI) | payer MEDICAID, SELFPAY | END 2021-03-04 10:01 | disposition home or self-care (01) | LOC: SPT 10:00 | PROVIDERS: PCP Nurse Practitioner Family; Visit Provider Podiatrist Foot & Ankle Surgery | DX: Z46.89 Encounter for fitting and adjustment of other specified devices (principal); L97.512 Non-pressure chronic ulcer of other part of right foot with fat layer exposed | CPT/HCPCS: 97760; L4361 ==

== ENCOUNTER 2021-06-15 20:00 | Outpatient (CLI) | payer MEDICAID, SELFPAY | END 2021-06-15 20:01 | disposition home or self-care (01) | LOC: SLEEP 06-16 11:29 | PROVIDERS: PCP Nurse Practitioner Family; Visit Provider Nurse Practitioner Family | DX: G47.10 Hypersomnia, unspecified (principal); R06.83 Snoring; R53.83 Other fatigue; G47.33 Obstructive sleep apnea (adult) (pediatric); G47.36 Sleep related hypoventilation in conditions classified elsewhere | CPT/HCPCS: 95810 ==

== ENCOUNTER → 2021-07-01 13:27 | Outpatient (BNVA) | payer MEDICAID, SELFPAY | PROVIDERS: PCP Nurse Practitioner Family; Referring Provider Nurse Practitioner Family; Visit Provider Specialist | DX: R20.0 Anesthesia of skin (principal); R20.2 Paresthesia of skin; F17.200 Nicotine dependence, unspecified, uncomplicated | CPT/HCPCS: 95908 ==

== ENCOUNTER 2021-08-23 12:49 | Outpatient (CLI) | payer MEDICAID, SELFPAY ==
--- NOTE | 2021-08-23 12:59 | CT_ITS ---
WS: [id number] CT NECK TECHNIQUE: Noncontrast CT of the neck with coronal and sagittal reformatted images. CLINICAL INFORMATION: PAROTID GLAND SWELLING COMPARISON: August 12, 2020, April 15, 2020. DLP: 1840.[address] scans at [facility] use at least one of these dose optimization techniques: automated e xposure control; mA and/or kV adjustment per patient size (includes targeted exams where dose is matc hed to clinical indication); or iterative reconstruction. FINDINGS: Slight asymmetric enlargement of the right parotid gland with increased density similar to the prior examinations. This can be seen with parotiditis. No visualized obstructing calculi. Incidental intrap arotid lymph nodes. No visualized obstructing salivary calculi. Normal submandibular glands. A few ti ny punctate calcifications in the parotid glands. Mastoid air cells are well aerated. Paranasal sinuses are well aerated. Paranasal sinuses partially v isualized. Normal posterior nasopharynx. Normal parapharyngeal fat. No evidence of supraglottic or glottic mass. Normal epiglottis. Normal subglottic airway. Lung apices are well aerated. Mild cervical curve. Mild spondylitic changes cervical spine. CT/CT neck wo con [id number] IMPRESSION: 1. Increased density with slight asymmetric enlargement of the right parotid g land compared to the left. Trace suggestion of surrounding inflammation and thi ckening of the platysma. Recommend correlation for parotiditis. This is similar to the prior examinations. No visualized obstructing calculi. 2. Salivary glands otherwise normal in appearance. 3. No supraglottic or glottic mass. 4. No cervical lymphadenopathy. 5. Mild spondylitic changes cervical spine.
== END 2021-08-23 12:50 | disposition home or self-care (01) ==
PROVIDERS: PCP Nurse Practitioner Family; Visit Provider Nurse Practitioner Family
DX: K11.8 Other diseases of salivary glands (principal)
CPT/HCPCS: 70490

== ENCOUNTER 2021-08-25 13:08 | Outpatient (CLI) | payer MEDICAID, SELFPAY ==
--- NOTE | 2021-08-25 13:17 | CT_ITS ---
WS: [id number] LDCT LUNG CANCER SCREENING HISTORY: NICOTINE Dependence, cigarettes TECHNIQUE: Axial imaging performed from the apices to 1 cm below the costophrenic angles. Coronal and sagittal reformats are submitted with axial MIP series. All CT scans at [facility] use at least one of these dose optimization techniques: automated exposure control; mA and/or kV adjustment per patient size (includes targeted exams where dose is matched to clinical indication); or iterativ e reconstruction. DLP: 60.52 mGy.cm DIvol: 1.58 mGy COMPARISON: 04/15/2020 Diagnostic quality: Satisfactory Lung Nodules: No noncalcified pulmonary nodules or endobronchial lesions. There is a calcified granul amrita RIGHT lower lobe. Lungs: Paraseptal emphysematous changes. Heart: Normal size heart. No pericardial effusion. Small mediastinal and hilar lymph nodes maintain t heir fatty nora. Other findings: Mild curvature thoracic spine. No destructive bone lesions. CT/CT lung screening [id number] IMPRESSION: LUNG-RADS: 2-Benign Appearance or Behavior FOLLOW UP: 12 Month: Continue annual screening with LDCT OTHER FINDINGS (S MODIFIER): None.
== END 2021-08-25 13:09 | disposition home or self-care (01) ==
LOC: RAD 13:09
PROVIDERS: PCP Nurse Practitioner Family; Visit Provider Nurse Practitioner Family
DX: Z12.2 Encounter for screening for malignant neoplasm of respiratory organs (principal); F17.210 Nicotine dependence, cigarettes, uncomplicated
CPT/HCPCS: 71271

== ENCOUNTER 2022-08-23 10:26 | Outpatient (CLI) | payer MEDICAID, SELFPAY ==
--- NOTE | 2022-08-23 10:53 | XRR_ITS ---
PROCEDURE INFORMATION: Exam: XR Lumbosacral Spine Exam date and time: 08/23/2022 10:59 AM Age: 56 years old Clinical indication: Other: Low back pain; Prior surgery; Surgery type: L spine; Additional info: Lumbar spine degenerative disc dz TECHNIQUE: Imaging protocol: Radiologic exam of the lumbosacral spine. Views: 2 or 3 views. COMPARISON: CR XR lumbar spine 2-3V* [id number] 04/25/2016 3:11 PM FINDINGS: Bones/joints: Listhesis at L/4/5 is 12 mm on extension. It is 12 mm on flexion. Is 12 mm on neutral positioning. Arthritic changes are noted most severe at L4/5 with a suspected pars defects at L4/5. Soft tissues: Unremarkable. XR/XR lumbar spine f/e only [id number] IMPRESSION: Stable listhesis.
== END 2022-08-23 10:27 | disposition home or self-care (01) ==
LOC: RAD 10:30
PROVIDERS: PCP Nurse Practitioner Family; Visit Provider Nurse Practitioner Family
DX: M51.36 Other intervertebral disc degeneration, lumbar region (principal)
CPT/HCPCS: 72120

== ENCOUNTER → 2022-09-22 11:11 | Outpatient (BNVA) | payer MEDICAID, SELFPAY | PROVIDERS: PCP Nurse Practitioner Family; Visit Provider Orthopaedic Surgery | DX: Z98.890 Other specified postprocedural states (principal); M43.16 Spondylolisthesis, lumbar region | CPT/HCPCS: 99204 ==

== ENCOUNTER 2022-10-28 11:41 | Outpatient (CLI) | payer MEDICAID, SELFPAY ==
--- NOTE | 2022-10-28 13:00 | IR_ITS ---
WS: [id number] LUMBAR MYELOGRAM HISTORY: pain COMPARISON: 08/21/2022 FLUOROSCOPY TIME: 1min [id number] # of spot films: 5 Procedure, risks and complications were explained to the patient. Risks including bleeding, infection , headaches, allergic reaction and seizures. Consent has been obtained. With the patient in prone position the skin over the lumbar region is cleansed with ChloraPrep and an esthetized with lidocaine. 22-gauge spinal needle is inserted into the thecal sac at the appropriate level determined by fluoroscopy. Omnipaque 240; 12 ml is injected slowly under fluoroscopy with no co mplications. Needle bevel is perpendicular to the longitudinal fibers of the dura. Stylet is reinsert ed prior to removal of the needle. Patient tolerated the procedure well. Patient will proceed to CT f or further evaluation. L4 anterolisthesis by 5.6 mm. Severe facet joint arthritis L4-5 and L5-S1. Severe disc space narrowin g at L5-S1. There is an abrupt termination of the contrast column at L4-5 due to severe stenosis. IR/[place] [id number] IMPRESSION: 1. Grade 1 anterolisthesis of L4. 2. Severe central canal stenosis at L4-5. This level will be better described on the CT to follow.
--- NOTE | 2022-10-28 13:25 | CT_ITS ---
WS: [id number] CT MYELOGRAM LUMBAR SPINE HISTORY: low back pain TECHNIQUE: Contiguous 2.0 mm axial imaging performed from T12 through the mid sacral level. Bone and soft tissue windows reviewed. Sagittal and coronal reformats are submitted and reviewed. DLP: 1177.[address] scans at [facility] use at least one of these dose optimization techniques: automated e xposure control; mA and/or kV adjustment per patient size (includes targeted exams where dose is matc hed to clinical indication); or iterative reconstruction. COMPARISON: 03/28/2016 Good injection of contrast into the thecal sac. L4 anterolisthesis by 7.9 mm. No pars defects. Degene rative disc disease with air at L1-2 and L4-5. No fractures. Severe disc space narrowing at L5-S1. Th ere is also marked narrowing of the T12-L1 disc space which may be partially calcified. Mild anterior wedging of T12. No acute fractures. L1-L2: Mild diffuse annular disc bulging encroaching upon the ventral thecal sac. Very mild central s tenosis. L2-L3: Mild diffuse annular disc bulging and osteophytic ridging. Mild central stenosis. Mild facet a rthritis. L3-L4: Mild annular disc bulging with facet joint arthritis. Mild central and bilateral subarticular recess encroachment. L4-L5: Abrupt termination of the contrast column at the disc level. Severe central and bilateral suba rticular recess stenosis and foraminal stenosis. Stenosis due to combination of disc disease in the a nterolisthesis of L4 along with large hypertrophic osteophytes extending into the thecal sac and liga mentum flavum hypertrophy. Asymmetric disc bulging on the LEFT. L5-S1: Very minimal contrast extends beyond the L4-5 disc level due to the severe stenosis. No centra l stenosis. There is a laminectomy defect on the RIGHT. Hypertrophic bone formation encroaching into the subarticular recesses with moderate to severe bilateral foraminal stenosis. CT/CT lumbar spine w con [id number] IMPRESSION: 1. Severe central, bilateral subarticular recess and foraminal stenosis at L4- 5. There is a complete termination of the contrast column due to the high-grade stenosis. Similar findings with progression since 2015. 2. L4 anterolisthesis by 7.9 mm. 3. Moderate to severe bilateral foraminal stenosis and subarticular recess enc roachment at L5-S1. RIGHT hemilaminectomy defect also at this level. 4. Mild central stenosis at L2-3. 5. Mild central and bilateral subarticular recess stenosis at L3-4.
[2022-10-28] MEDS: iohexol 240 mg/mL 50 mL Btl INTRATHECA (13:36)
== END 2022-10-28 11:42 | disposition home or self-care (01) ==
LOC: RAD 11:41
PROVIDERS: PCP Nurse Practitioner Family; Visit Provider Orthopaedic Surgery
DX: M54.50 Low back pain, unspecified (principal); M48.07 Spinal stenosis, lumbosacral region; M48.061 Spinal stenosis, lumbar region without neurogenic claudication
CPT/HCPCS: 62304; 72132; Q9966

== ENCOUNTER → 2022-12-06 11:35 | Outpatient (BNVA) | payer MEDICAID, SELFPAY | PROVIDERS: PCP Nurse Practitioner Family; Visit Provider Physician Assistant | DX: M43.16 Spondylolisthesis, lumbar region (principal); M48.062 Spinal stenosis, lumbar region with neurogenic claudication | CPT/HCPCS: 99213 ==

== ENCOUNTER 2022-12-09 13:21 | Emergency (ER) | payer MEDICAID, SELFPAY ==
[2022-12-09 13:25] VITALS: BP 104/49; PULSE 88; RESP 18; TEMP 36.7; O2SAT 94
--- NOTE | 2022-12-09 13:34 | XR_ITS ---
WS: [id number] Left knee, 3 views, 12/09/2022 Clinical Data: left knee pain-twist injury Comparison: None. Findings: No fractures or dislocations are seen. The joint spaces are normal. The patella is intact. The soft t issues are unremarkable. XR/XR knee LT 3V* [id number] Impression: Negative left knee. Kellgren-Akira Classification: grade 0 (none): definite absence of x-ray alan nges of osteoarthritis
--- NOTE | 2022-12-09 13:54 | W.ED.EXTPRO ---
HPI - Extremity Problem General: Chief complaint: Extremity Injury, Lower Stated complaint: Left knee injury Time Seen by Provider: 12/09/22 13:34 History of Present Illness: Patient is a 57-year-old male comes to the ED with left knee injury and pain. Symptoms started couple days ago when he twisted his knee when standing up from chair. Denies any other injury or trauma to cause pain. He rates pain currently a 7 out of 10 at its located on the lateral aspect of his knee. Associated symptoms: Deny chest pain, fever(s) or rash Review of Systems Const: Denies: fever(s), chills or fatigue Eyes: Denies: change in vision or eye discomfort ENMT: Denies: throat pain, odynophagia, nasal discharge or nasal congestion Card: Denies: chest pain, palpitations, edema, swelling of feet/ankles, dyspnea on exertion or orthopnea Resp: Denies: dyspnea, productive cough or non-productive cough GI: Denies: abdominal pain, nausea, vomiting, diarrhea, constipation or hematochezia : Denies: flank pain, difficulty urinating, dysuria or hematuria Musc: Reports: extremity pain (Left knee); Denies: neck pain, back pain or extremity swelling Skin/Breast: Denies: rash or new lesions Neuro: Denies: headache(s), numbness in extremities or weakness in extremities PFS ED PFSH: Medical History Anxiety Atypical chest pain Calculus of distal left ureter Dizziness Fatigue Gastritis determined by endoscopy Hydronephrosis, left Hyperlipidemia Hypertension Left ventricular diastolic dysfunction Numbness and tingling of both lower extremities Numbness and tingling of both upper extremities Smoking Weakness Surgical History History of back surgery History of removal of cyst Status post colonoscopy Family History Mother , AT AGE 80 Diabetes Cancer Dementia Brother Myocardial infarction CAD (coronary artery disease) Suicide Lung disease Father , AT AGE 58 Myocardial infarction CAD (coronary artery disease) Grandmother Stroke Grandfather Stroke Sister Diabetes Family/Other Chronic kidney disease (CKD) Diabetes Denies family history of Clotting disorder Anesthesia complication Bleeding disorder Social History Smoking and tobacco status: current every day smoker Alcohol intake: never Lives independently: Yes Household members: none Marital status: Current occupational status: disabled Physical Exam Const: COMMON NORMALS: patient oriented x3 HENMT: COMMON NORMALS: normocephalic HEAD & SCALP: normocephalic MOUTH: Normal oral and palatal mucosa present THROAT: posterior oropharynx normal and uvula midline Neck/C-Spine: COMMON NORMALS: supple GENERAL: Yes normal visual inspection Resp: COMMON NORMALS: normal respiratory effort, No retractions, No use of accessory muscles and clear to auscultation bilaterally AUSCULTATION: clear to auscultation bilaterally Cardio: COMMON NORMALS: regular rate, regular rhythm, S1 normal heart sound present, S2 normal heart sound present, No gallops present (Cardio), No clicks present (Cardio), No murmurs present (Cardio) and Peripheral pulses 2+ throughout RATE: regular rate RHYTHM: regular rhythm HEART SOUNDS: S1 normal heart sound present and S2 normal heart sound present PERIPHERAL PULSES: Peripheral pulses 2+ throughout GI: COMMON NORMALS: Normal to inspection, nondistended, normoactive bowel sounds present, Soft to palpation, non-tender and no masses PALPATION: Yes Soft to palpation : COMMON NORMALS: Yes no CVA tenderness BLADDER/KIDNEY EXAM: Yes no CVA tenderness Back/Pelvis: COMMON NORMALS: no CVA tenderness Extremity: NARRATIVE EXTREMITY EXAM: Left knee?no visible injury or deformity seen. Mild tenderness to lateral aspect of knee. Full range of motion. Neurovascular intact. Neuro: COMMON NORMALS: patient oriented x3 GAIT: Yes Normal gait present Skin: GENERAL SKIN EXAM: dry skin Course Vital Signs: Vital signs: Vital Signs Temperature 98.0 F 12/09/22 13:25 Pulse Rate 88 12/09/22 13:25 Respiratory Rate 18 12/09/22 13:25 Blood Pressure 104/49 12/09/22 13:25 Pulse Oximetry 94 12/09/22 13:25 Oxygen Delivery Me thod 12/09/22 13:25 MDM - Extremity (Nontraumatic) Medical Decision Making Patient is a 57-year-old male comes to the ED with left knee injury and pain. Symptoms started couple days ago when he twisted his knee when standing up from chair. Denies any other injury or trauma to cause pain. He rates pain currently a 7 out of 10 at its located on the lateral aspect of his knee.vitals stable. Left knee?no visible injury or deformity seen. Mild tenderness to lateral aspect of knee. Full range of motion. Neurovascular intact. Left knee x-ray showed no acute fractures or findings. Patient diagnosed with left knee sprain and was stable for discharge home. Told to rest, ice and elevate leg to help with symptoms. Follow-up with PCP within the next week for reevaluation. Patient understood and agreed with plan. Lab Data Radiology Impressions Knee X-Ray 12/09/22 13:34 Impression: Negative left knee. Kellgren-Akira Classification: grade 0 (none): definite absence of x-ray changes of osteoarthritis Discharge Plan Discharge Patient Disposition: Home Clinical Impression: Left knee sprain Qualifiers: Encounter type: initial encounter Involved ligament of knee: unspecified ligament Qualified Code(s): S83.92XA - Sprain of unspecified site of left knee, initial encounter Condition: Stable Prescriptions: No Action amlodipine 2.5 mg tablet 2.5 mg PO DAILY cyclobenzaprine 10 mg tablet 10 mg PO Q8H PRN (Reason: Muscle Spasm) omega-3 fatty acids 1,250 mg capsule 1,250 mg PO DAILY gabapentin 100 mg capsule 100 mg PO DAILY fluoxetine 10 mg capsule 10 mg PO DAILY bisoprolol-hydrochlorothiazide 10-6.25 mg tablet 1 tab PO DAILY (DME) TKO See Rx Instructions .Route .MEDSUPPLY Qty: 1 0RF Rx Instructions: As directed (DME) Benjie Sylvester See Rx Instructions .ROUTE .MEDSUPPLY Qty: 1 0RF Rx Instructions: As directed. pravastatin 80 mg tablet 80 mg PO DAILY Qty: 90 3RF Protonix 40 mg tablet,delayed release (DR/EC) 40 mg PO DAILY 30 Days Qty: 30 3RF [place] 5-325 mg tablet 1 tab PO Q6H PRN (Reason: pain) Qty: 14 0RF ondansetron 4 mg tablet,disintegrating 4 mg PO Q6H PRN (Reason: nausea and vomiting) Qty: 14 0RF hydrocodone-acetaminophen 5-325 mg tablet 1 tab PO Q6H PRN (Reason: pain) Qty: 14 0RF Discharge Orders: Discharge ED (Routine); Ordered 12/09/22 Ordered By: Anthony Laguna Referrals: Jacqueline Almeida FNP [Primary Care Provider] - Discharge Diet: Regular Discharge Activity: Increase activity as tolerated Patient Instructions: Knee Sprain (ED), Knee Pain (ED) Activity Restrictions/Additional Instructions: Follow-up with medical provider as directed in the next 5 to 7 days reevaluation. Rest, ice and elevate right knee. Take medications as prescribed. Return to the ER or your medical provider if condition worsens. Please read and understand discharge instructions. Thank you for choosing [facility] for your healthcare needs today. Please realize this is an emergency room and that we are providing you with a medical screening exam and this may not be complete and all inclusive of all the testing and or work up that you may need to determine your ailment or severity of your illness. It is very important that you follow up as instructed or that you return to the Emergency Department should you have concerns or if your condition changes or worsens in any way. Coding Level of Care Code ED Retail Pharmacy Manager for Madison Morillo
== END 2022-12-09 14:20 | disposition home or self-care (01) ==
PROVIDERS: Emergency Provider Physician Assistant; PCP Nurse Practitioner Family
DX: S83.92XA Sprain of unspecified site of left knee, initial encounter (principal); I10 Essential (primary) hypertension; E78.5 Hyperlipidemia, unspecified; F17.200 Nicotine dependence, unspecified, uncomplicated; X50.1XXA Overexertion from prolonged static or awkward postures, initial encounter
CPT/HCPCS: 73562; 99283

== ENCOUNTER 2022-12-09 17:29 | Emergency (ER) | payer MEDICAID, SELFPAY ==
--- NOTE | 2022-12-09 | XRR_ITS ---
PROCEDURE INFORMATION: Exam: XR Left Elbow Exam date and time: 12/09/2022 5:51 PM Age: 57 years old Clinical indication: Injury or trauma; Fall; Sprain or strain; Elbow; Left TECHNIQUE: Imaging protocol: Radiologic exam of the left elbow. Views: 3 or more views. COMPARISON: CR XR finger LT min 2V [id number] 12/31/2020 10:53 AM FINDINGS: Bones/joints: Normal. Soft tissues: Normal. XR/XR elbow LT min 3V* [id number] IMPRESSION: No acute findings.
[2022-12-09 17:36] VITALS: BP 145/93; PULSE 133; RESP 18; TEMP 36.7; O2SAT 97
--- NOTE | 2022-12-09 17:47 | XRR_ITS ---
PROCEDURE INFORMATION: Exam: XR Left Forearm Exam date and time: 12/09/2022 5:51 PM Age: 57 years old Clinical indication: Injury or trauma; Fall; Sprain or strain; Elbow; Left TECHNIQUE: Imaging protocol: Radiologic exam of the left forearm. Views: 2 views. COMPARISON: CR XR finger LT min 2V [id number] 12/31/2020 10:53 AM FINDINGS: Bones/joints: Normal. Soft tissues: Normal. XR/XR forearm LT 2V [id number] IMPRESSION: No acute findings.
--- NOTE | 2022-12-09 17:47 | XRR_ITS ---
PROCEDURE INFORMATION: Exam: XR Left Ribs with PA Chest Exam date and time: 12/09/2022 5:51 PM Age: 57 years old Clinical indication: Injury or trauma; Fall; Rib area, left side; Sprain or strain TECHNIQUE: Imaging protocol: Radiologic exam of the left ribs with PA chest. Views: 3 views COMPARISON: CT lung screening [id number] 08/25/2021 1:40 PM FINDINGS: Lungs: Minimal bibasilar atelectasis. Pleural spaces: Unremarkable. No pleural effusion. No pneumothorax. Heart/Mediastinum: Unremarkable. No cardiomegaly. Bones/joints: No acute displaced rib fractures identified in the left ribs. On same day CT chest a nondisplaced right 4th anterior rib fracture was seen. XR/XR ribs LT mn 3V w CXR1V [id number] IMPRESSION: 1. Negative left ribs. 2. Minimal bibasilar atelectasis.
--- NOTE | 2022-12-09 17:48 | ED_ITS ---
HPI - Fall General: Chief Complaint: Fall Stated Complaint: Fall from ladder Left side pain Time Seen by Provider: 12/09/22 17:41 Source: patient Mode of arrival: ambulatory Limitations: no limitations History of Present Illness: 57-year-old male states he was cleaning his gutters just before arrival and fell off his ladder he states it is roughly 16 foot fall he landed on his left side he states he has left arm pain along with left rib pain he rates his pain an 8 out of 10 he denies any other injuries denies hitting his head denies any neck pain denies any abdominal pain he is ambulatory. Associated symptoms-after fall: Reports chest pain; Denies abdominal pain or headache(s) Review of Systems Const: Denies: fever(s), chills, body aches or change in appetite Eyes: Denies: blurry vision or eye discomfort ENMT: Denies: throat pain or dental pain Card: Reports: chest pain Resp: Denies: dyspnea GI: Denies: abdominal pain, nausea, vomiting or diarrhea : Denies: dysuria Musc: Reports: extremity pain Skin/Breast: Denies: rash Neuro: Denies: headache(s) Psych: Denies: depression José Luis/Lymph: Denies: easy bruising All/Imm: Denies: urticaria PFSH ED PFSH: Medical History Anxiety Atypical chest pain Calculus of distal left ureter Dizziness Fatigue Gastritis determined by endoscopy Hydronephrosis, left Hyperlipidemia Hypertension Left ventricular diastolic dysfunction Numbness and tingling of both lower extremities Numbness and tingling of both upper extremities Smoking Weakness Surgical History History of back surgery History of removal of cyst Status post colonoscopy Family History Mother , AT AGE 80 Diabetes Cancer Dementia Brother Myocardial infarction CAD (coronary artery disease) Suicide Lung disease Father , AT AGE 58 Myocardial infarction CAD (coronary artery disease) Grandmother Stroke Grandfather Stroke Sister Diabetes Family/Other Chronic kidney disease (CKD) Diabetes Denies family history of Clotting disorder Anesthesia complication Bleeding disorder Social History Smoking and tobacco status: current every day smoker Alcohol intake: never Lives independently: Yes Household members: none Marital status: Current occupational status: disabled Physical Exam Const: COMMON NORMALS: no acute distress, patient oriented x3 and healthy appearing HENMT: COMMON NORMALS: normocephalic and atraumatic HEAD & SCALP: normocephalic and atraumatic Eye: COMMON NORMALS: Equal, round and reactive pupils present and EOMs intact bilaterally PUPIL: Yes Equal, round and reactive pupils present Neck/C-Spine: COMMON NORMALS: full ROM and supple Chest: COMMONS NORMALS: normal inspection of the chest OTHER: tender over left chest wall Resp: COMMON NORMALS: normal respiratory effort, No retractions, No use of accessory muscles and clear to auscultation bilaterally AUSCULTATION: clear to auscultation bilaterally Cardio: COMMON NORMALS: regular rate, regular rhythm and No murmurs present (Cardio) RATE: regular rate RHYTHM: regular rhythm GI: COMMON NORMALS: Normal to inspection, nondistended, normoactive bowel sounds present, Soft to palpation, non-tender and no masses PALPATION: Yes Soft to palpation Extremity: COMMON NORMALS: full ROM NARRATIVE EXTREMITY EXAM: tendernes to left forearm Neuro: COMMON NORMALS: patient oriented x3, moves all extremities and no focal motor deficits Psych: COMMON NORMALS: mental status grossly normal, Normal thought process present and cooperative THOUGHT PROCESS: Normal thought process present Skin: COMMON NORMALS: no rashes or lesions noted and no wounds GENERAL SKIN EXAM: no rashes or lesions noted Course Vital Signs: Vital signs: Vital Signs Temperature 98.1 F 12/09/22 17:36 Pulse Rate 133 H 12/09/22 17:36 Respiratory Rate 18 12/09/22 17:36 Blood Pressure 145/93 12/09/22 17:36 Pulse Oximetry 97 12/09/22 17:36 Oxygen Delivery Me thod 12/09/22 17:36 MDM - Fall Medical Decision Making Patient presents here with closed rib fracture along likely contusion from his fall no serious injuries he has no abdominal tenderness no abdominal pain he did not hit his head or neck he does have a contusion to his left forearm but no fracture he is stable for discharge she is to do incentive spirometry and will p rescribe him pain meds. Lab Data Radiology Impressions Forearm X-Ray 03/10/23 17:47 IMPRESSION: No acute findings. Chest CT 12/09/22 18:37 IMPRESSION: 1. Acute nondisplaced fracture of the right anterior 4th rib. 2. Mild compression deformity of T6 is age indeterminate but may be chronic. Correlate with point tenderness. 3. Emphysema. Minimal bibasilar atelectasis. COMMENTS: In the absence of a history or active diagnosis of lung cancer, it is recommended that this patient with emphysema be evaluated for enrollment in a low dose CT lung cancer screening program. Discharge Plan Discharge Patient Disposition: Home Clinical Impression: Fall, Closed rib fracture Condition: Stable Prescriptions: New hydrocodone-acetaminophen 5-325 mg tablet 1 tab PO Q6H PRN (Reason: pain) Qty: 14 0RF No Action amlodipine 2.5 mg tablet 2.5 mg PO DAILY cyclobenzaprine 10 mg tablet 10 mg PO Q8H PRN (Reason: Muscle Spasm) omega-3 fatty acids 1,250 mg capsule 1,250 mg PO DAILY gabapentin 100 mg capsule 100 mg PO DAILY fluoxetine 10 mg capsule 10 mg PO DAILY bisoprolol-hydrochlorothiazide 10-6.25 mg tablet 1 tab PO DAILY (DME) TKO See Rx Instructions .Route .MEDSUPPLY Qty: 1 0RF Rx Instructions: As directed (DME) Benjie Sylvester See Rx Instructions .ROUTE .MEDSUPPLY Qty: 1 0RF Rx Instructions: As directed. pravastatin 80 mg tablet 80 mg PO DAILY Qty: 90 3RF Protonix 40 mg tablet,delayed release (DR/EC) 40 mg PO DAILY 30 Days Qty: 30 3RF [place] 5-325 mg tablet 1 tab PO Q6H PRN (Reason: pain) Qty: 14 0RF ondansetron 4 mg tablet,disintegrating 4 mg PO Q6H PRN (Reason: nausea and vomiting) Qty: 14 0RF Discharge Orders: Discharge ED (Routine); Ordered 12/09/22 Ordered By: Andrew Jones Referrals: Jacqueline Almeida FNP [Primary Care Provider] - 1-3 days Discharge Diet: Advance as tolerated Discharge Activity: Resume usual activity Patient Instructions: Rib Fracture (ED), Opioid Safety Coding Level of Care Code ED Utility Inspector for Madison Morillo
--- NOTE | 2022-12-09 17:49 | PC.NURSE ---
PT STATES HE FELL OFF OF A LADDER. PT STATES HE WAS APPROX 8-10 FEET UP WHEN HE FELL. PT DENIES HITTING HIS HEAD. PT STATES HE HAS CHEST/LEFT SIDE/ AND LEFT ARM PAIN. PT STATES PAIN 8/10. PT DENIES ANY LUMPS/ BRUISES/ OR SCRAPES.
[2022-12-09] MEDS: HYDROcodone-acetaminophen 5-325 mg Tablet 1 TAB PO (18:05)
--- NOTE | 2022-12-09 18:37 | CTR_ITS ---
PROCEDURE INFORMATION: Exam: CT Chest Without Contrast; Diagnostic Exam date and time: 12/09/2022 6:44 PM Age: 57 years old Clinical indication: Injury or trauma; Fall; Blunt trauma (contusions or hematomas) TECHNIQUE: Imaging protocol: Diagnostic computed tomography of the chest without contrast. Radiation optimization: All CT scans at this facility use at least one of these dose optimization techniques: automated exposure control; mA and/or kV adjustment per patient size (includes targeted exams where dose is matched to clinical indication); or iterative reconstruction. REPORTING DATA: Count of CT and Cardiac NM exams in prior 12 months: This patient has received [address] and 0 known cardiac nuclear medicine studies in the 12 months prior to the current study. COMPARISON: CT lung screening [id number] 08/25/2021 1:40 PM RADIATION DOSE METRICS: Total DLP (mGy-cm): 700.01 FINDINGS: Lungs: Unchanged bilateral pulmonary calcified granuloma. Unchanged moderate centrilobular and paraseptal emphysema. Minimal bibasilar atelectasis. Pleural spaces: Unremarkable. No pneumothorax. No pleural effusion. Heart: Unremarkable. No cardiomegaly. No pericardial effusion. Lymph nodes: Calcified lymph nodes in the mediastinum and right hilum are unchanged. Stable 5 mm left lower lobe perifissural nodule most likely an intrapulmonary lymph node. Vasculature: Unremarkable. No aortic aneurysm. Spleen: Unchanged splenic granulomata. Bones/joints: Mild central compression deformity of the T6 vertebrae is age indeterminate but may be chronic. The bones appear demineralized. Acute nondisplaced fracture of right anterior rib 4. Soft tissues: Unremarkable. CT/CT chest con [id number] IMPRESSION: 1. Acute nondisplaced fracture of the right anterior 4th rib. 2. Mild compression deformity of T6 is age indeterminate but may be chronic. Correlate with point tenderness. 3. Emphysema. Minimal bibasilar atelectasis. COMMENTS: In the absence of a history or active diagnosis of lung cancer, it is recommended that this patient with emphysema be evaluated for enrollment in a low dose CT lung cancer screening program.
--- NOTE | 2022-12-09 19:00 | PC.NURSE ---
Report from JEFFERY Mcdonough. Pt denies needs at this time.
--- NOTE | 2022-12-09 19:14 | PC.NURSE ---
RT notified for IS teaching.
[2022-12-09 19:21] VITALS: BP 123/78; PULSE 61; RESP 16; O2SAT 94
--- NOTE | 2022-12-09 19:28 | PC.NURSE ---
Wallace wrap applied to left arm per MD.
== END 2022-12-09 19:30 | disposition home or self-care (01) ==
PROVIDERS: Emergency Provider Emergency Medicine; PCP Nurse Practitioner Family
DX: S22.31XA Fracture of one rib, right side, initial encounter for closed fracture (principal); S50.12XA Contusion of left forearm, initial encounter; I10 Essential (primary) hypertension; E78.5 Hyperlipidemia, unspecified; F17.200 Nicotine dependence, unspecified, uncomplicated; W11.XXXA Fall on and from ladder, initial encounter
CPT/HCPCS: 71101; 71250; 73080; 73090; 99284

== ENCOUNTER → 2023-03-23 12:30 | Outpatient (BNVA) | payer MEDICAID, SELFPAY | PROVIDERS: PCP Nurse Practitioner Family; Visit Provider Nurse Practitioner Family | DX: M25.511 Pain in right shoulder (principal); M25.562 Pain in left knee | CPT/HCPCS: 73030; 73562 ==

== ENCOUNTER → 2023-11-27 09:43 | Outpatient (BNVA) | payer MEDICAID, SELFPAY | PROVIDERS: PCP Nurse Practitioner Family; Visit Provider Anesthesiology Pain Medicine | DX: R20.0 Anesthesia of skin (principal); R20.2 Paresthesia of skin; M43.16 Spondylolisthesis, lumbar region; M48.062 Spinal stenosis, lumbar region with neurogenic claudication | CPT/HCPCS: 99204 ==

== ENCOUNTER 2023-12-15 14:09 | Outpatient (CLI) | payer MEDICAID, SELFPAY ==
--- NOTE | 2023-12-15 14:18 | CT_ITS ---
WS: [id number] LDCT LUNG CANCER SCREENING HISTORY: NICOTINE DEPENDENCE,CIGARETTES TECHNIQUE: Axial imaging performed from the apices to 1 cm below the costophrenic angles. Coronal and sagittal reformats are submitted with axial MIP series. All CT scans at [facility] use at least one of these dose optimization techniques: automated exposure control; mA and/or kV adjustment per patient size (includes targeted exams where dose is matched to clinical indication); or iterativ e reconstruction. DLP: 162.11 mGy.cm DIvol: Mean CTDIvol: 3.60 (mGy) COMPARISON: 12/09/2022, 08/25/2021 Diagnostic quality: Satisfactory Lungs: Paraseptal emphysema. Benign calcified granulomata RIGHT lower lobe. There are a few adjacent noncalcified but stable nodules adjacent to the granuloma. No suspicious mass or nodule. No pneumonia . No endobronchial lesions. Heart: Normal size heart with no pericardial effusion.. Other findings: No adenopathy. Normal size pulmonary artery. Healed fracture involving the sternal ma nubrium with abundant callus formation. This fracture was also probably present on the study of 2022 but difficult to visualize at it was nondisplaced and acute. As reported there was trauma at hallie t time. IMPRESSION: CT/CT lung screening [id number] LUNG-RADS: 2-Benign Appearance or Behavior FOLLOW UP: 12 Month: Continue annual screening with LDCT OTHER FINDINGS (S MODIFIER): None.
== END 2023-12-15 14:10 | disposition home or self-care (01) ==
LOC: RAD 14:10
PROVIDERS: PCP Nurse Practitioner Family; Visit Provider Nurse Practitioner Family
DX: Z12.2 Encounter for screening for malignant neoplasm of respiratory organs (principal); F17.210 Nicotine dependence, cigarettes, uncomplicated; J43.8 Other emphysema; J84.10 Pulmonary fibrosis, unspecified
CPT/HCPCS: 71271

== ENCOUNTER → 2024-01-19 10:12 | Outpatient (BNVA) | payer MEDICAID, SELFPAY | PROVIDERS: PCP Nurse Practitioner Family; Visit Provider Otolaryngology | DX: G47.33 Obstructive sleep apnea (adult) (pediatric); E66.9 Obesity, unspecified; R13.12 Dysphagia, oropharyngeal phase; F17.200 Nicotine dependence, unspecified, uncomplicated; Z68.37 Body mass index [BMI] 37.0-37.9, adult | CPT/HCPCS: 31575; 99204 ==

== ENCOUNTER 2024-01-31 10:26 | Outpatient (CLI) | payer MEDICAID, SELFPAY ==
--- NOTE | 2024-01-31 11:00 | FL_ITS ---
WS: [id number] FL barium swallow modifd [id number] REASON FOR EXAM: Difficulty swallowing. FLUOROSCOPY TIME: 1min [id number] # OF SPOT FILMS: 0 FINDINGS: Examination was supervised by the speech therapy department. The patient was examined in the sitting upright lateral projection. Multiple swallows of varying consistency barium were fluoroscopically monitored and video recorded. The speech therapy department will render a detailed report of the swallowing. FL/FL barium swallow modifd [id number] IMPRESSION: Modified barium swallow as above.
== END 2024-01-31 10:27 | disposition home or self-care (01) ==
LOC: RAD 10:27
PROVIDERS: PCP Nurse Practitioner Family; Visit Provider Otolaryngology
DX: R13.12 Dysphagia, oropharyngeal phase (principal)
CPT/HCPCS: 74230; 92611

== ENCOUNTER → 2024-03-01 11:23 | Outpatient (BNVA) | payer MEDICAID, SELFPAY | PROVIDERS: PCP Nurse Practitioner Family; Visit Provider Otolaryngology | DX: R13.12 Dysphagia, oropharyngeal phase (principal); K11.22 Acute recurrent sialoadenitis | CPT/HCPCS: 99214 ==

== ENCOUNTER → 2024-07-31 09:59 | Outpatient (BNVA) | payer MEDICAID, SELFPAY | PROVIDERS: PCP Nurse Practitioner Family; Visit Provider Podiatrist Foot & Ankle Surgery | DX: M93.271 Osteochondritis dissecans, right ankle and joints of right foot (principal) | CPT/HCPCS: 73610; 73620; 99203 ==

== ENCOUNTER → 2024-12-03 10:56 | Outpatient (BNVA) | payer MEDICAID, SELFPAY | PROVIDERS: PCP Nurse Practitioner Family; Visit Provider Podiatrist Foot & Ankle Surgery | DX: M93.271 Osteochondritis dissecans, right ankle and joints of right foot (principal); M79.671 Pain in right foot; M25.571 Pain in right ankle and joints of right foot | CPT/HCPCS: 73610; 99213 ==

== ENCOUNTER 2025-04-07 11:29 | Outpatient (CLI) | payer MEDICAID, SELFPAY ==
--- NOTE | 2025-04-07 11:40 | XRR_ITS ---
PROCEDURE INFORMATION: Exam: XR Right Knee Exam date and time: 04/07/2025 11:52 AM Age: 59 years old Clinical indication: Pain; Knee; Bilateral; Additional info: Pain in R knee TECHNIQUE: Imaging protocol: Radiologic exam of the right knee. Views: 3 views. COMPARISON: CR XR ankle RT min 3V* [id number] 12/03/2024 11:04 AM FINDINGS: Bones/joints: Mild degenerative changes of the knee joint. No definite acute fracture or traumatic malalignment. No knee joint effusion. Mild enthesopathic changes at the superior pole of the patella. Soft tissues: Normal. XR/XR knee RT 3V* [id number] IMPRESSION: As above.
--- NOTE | 2025-04-07 11:41 | XRR_ITS ---
PROCEDURE INFORMATION: Exam: XR Left Knee Exam date and time: 04/07/2025 11:52 AM Age: 59 years old Clinical indication: Pain; Knee; Bilateral; Additional info: Pain in left knee TECHNIQUE: Imaging protocol: Radiologic exam of the left knee. Views: 3 views. COMPARISON: CR XR knee LT 3V* [id number] 03/23/2023 12:34 PM FINDINGS: Bones/joints: Mild degenerative changes of the knee joint. No acute fracture or traumatic malalignment. No knee joint effusion. Mild enthesopathic changes of the superior pole of the patella. Soft tissues: Normal. XR/XR knee LT 3V* [id number] IMPRESSION: As above.
== END 2025-04-07 11:30 | disposition home or self-care (01) ==
LOC: RAD 11:32
PROVIDERS: PCP Nurse Practitioner Family; Visit Provider Nurse Practitioner Family
DX: M17.0 Bilateral primary osteoarthritis of knee (principal)
CPT/HCPCS: 73562

== ENCOUNTER 2025-04-21 07:51 | Outpatient (CLI) | payer MEDICAID, SELFPAY ==
--- NOTE | 2025-04-21 08:08 | CT_ITS ---
WS: [id number] LDCT LUNG CANCER SCREENING HISTORY: NICOTINE DEPENDENCE TECHNIQUE: Axial imaging performed from the apices to 1 cm below the costophrenic angles. Coronal and sagittal reformats are submitted with axial MIP series. All CT scans at [facility] use at least one of these dose optimization techniques: automated exposure control; mA and/or kV adjustment per patient size (includes targeted exams where dose is matched to clinical indication); or iterative reconstruction. DLP: 175.00 mGy.cm DIvol: Mean CTDIvol: 3.70 (mGy) COMPARISON: 12/15/2023 Diagnostic quality: Satisfactory Lungs: Paraseptal emphysema. Benign granuloma RIGHT lower lobe. Micronodules in the RIGHT lower lobe are stable. Calcified nodule along the LEFT major fissure. No change 3 mm nodule in the lingula. There are no new nodules or masses. No pneumonia. No endobronchial lesions. Heart: Normal size heart with no pericardial effusion.. Other findings: No pathologically enlarged lymph nodes. Normal size aorta and pulmonary artery. No adrenal mass. Splenic granulomata. Moderate hypertrophic bone disease in thoracic spine. Deformity of the sternal manubrium is from a prior fracture with healing. Thoracic scoliosis. CT/CT lung screening [id number] IMPRESSION: LUNG-RADS: 2-Benign Appearance or Behavior FOLLOW UP: 12 Month: Continue annual screening with LDCT OTHER FINDINGS (S MODIFIER): None.
== END 2025-04-21 07:52 | disposition home or self-care (01) ==
LOC: RAD 07:52
PROVIDERS: PCP Family Medicine; Visit Provider Family Medicine
DX: Z12.2 Encounter for screening for malignant neoplasm of respiratory organs (principal); Z87.891 Personal history of nicotine dependence; J43.8 Other emphysema; J84.10 Pulmonary fibrosis, unspecified; R91.8 Other nonspecific abnormal finding of lung field; D73.89 Other diseases of spleen; M89.38 Hypertrophy of bone, other site; S22.23XD Sternal manubrial dissociation, subsequent encounter for fracture with routine healing; X58.XXXD Exposure to other specified factors, subsequent encounter; M41.84 Other forms of scoliosis, thoracic region
CPT/HCPCS: 71271

== ENCOUNTER → 2025-05-08 15:22 | Outpatient (BNVA) | payer MEDICAID, SELFPAY | PROVIDERS: PCP Family Medicine; Visit Provider Orthopaedic Surgery | DX: M48.062 Spinal stenosis, lumbar region with neurogenic claudication (principal); M43.16 Spondylolisthesis, lumbar region | CPT/HCPCS: 72100; 99213 ==

== ENCOUNTER 2025-06-09 08:39 | Outpatient (CLI) | payer MEDICAID, SELFPAY ==
--- NOTE | 2025-06-09 08:44 | CT_ITS ---
WS: [id number] CT MYELOGRAM LUMBAR SPINE HISTORY: back pain TECHNIQUE: Contiguous 2.5 mm axial imaging performed from T12 through the mid sacral level. Bone and soft tissue windows reviewed. Sagittal and coronal reformats are submitted and reviewed. DLP: 1515.[address] scans at [facility] use at least one of these dose optimization techniques: automated exposure control; mA and/or kV adjustment per patient size (includes targeted exams where dose is matched to clinical indication); or iterative reconstruction. COMPARISON: 10/28/2022 There is mixed contrast opacification in the subarachnoid and subdural space. The needle was suggested during the contrast injection. There is contrast clumping around the nerve roots of the thecal sac. Contrast is pooling posteriorly surrounding the nerve roots. This may be due to some adhesions. The patient was rotated prior to the CT in an attempt to further mix the contrast. Osteopenia. Disc fusion at L5-S1 with bridging osteophytes between L5-S1. 5 mm anterolisthesis of L4. Schmorl's nodes at T12, L1 and L2. L1-L2: Diffuse disc bulging with osteophytic ridging. Mild central and foraminal stenosis with mild progression since the prior study. L2-L3: Diffuse annular disc bulging with osteophytic ridging. Bilateral ligamentum flavum and facet arthritis. Moderate central and foraminal stenosis. L3-L4: Mild central bilateral foraminal stenosis with facet arthritis. L4-L5: Severe central, bilateral subarticular recess and foraminal stenosis due to combination of disc disease, facet disease and ligamentum flavum disease. There is also a component of prominent epidural fat. Stenosis very similar to the prior study. L5-S1: No central stenosis. RIGHT hemilaminectomy. There is no contrast distal to the L4-5 disc level due to the high-grade stenosis. Osteophytes extend into the foramina with moderate to severe foraminal stenosis. Atherosclerosis aorta. CT/CT lumbar spine w con [id number] IMPRESSION: 1. Mixed subarachnoid and subdural contrast injection is probably due to the c entral stenosis. Needle was readjusted during the injection. 2. Reidentified is severe central, bilateral subarticular recess and foraminal stenosis at L4-5. 3. There is abrupt termination of the contrast column at the L4-5 level due to the high-grade stenosis. Similar to the prior study. 4. Moderate to severe bilateral foraminal stenosis at L5-S1. No change. 5. Mild central and bilateral foraminal stenosis at L1-2 and L3-4. 6. Moderate central and foraminal stenosis at L2-3. 7. RIGHT hemilaminectomy at L5-S1.
--- NOTE | 2025-06-09 08:45 | IR_ITS ---
WS: [id number] LUMBAR MYELOGRAM HISTORY: BACK PAIN/DORSALGIA COMPARISON: None available. FLUOROSCOPY TIME: 2min [id number] # of spot films: 3 Procedure, risks and complications were explained to the patient. Risks including bleeding, infection, headaches, allergic reaction and seizures. Consent has been obtained. With the patient in prone position the skin over the lumbar region is cleansed with ChloraPrep and anesthetized with lidocaine. 22-gauge spinal needle is inserted into the thecal sac at the appropriate level determined by fluoroscopy. There was a mixed contrast injection into the subarachnoid and subdural space. The needle was readjusted after visualizing the subdural space injection. Omnipaque 240; 12 ml is injected slowly under fluoroscopy with no complications. Needle bevel is perpendicular to the longitudinal fibers of the dura. Stylet is reinserted prior to removal of the needle. Patient tolerated the procedure well. Patient will proceed to CT for further evaluation. Abrupt termination of contrast at L4-5 due to a high-grade stenosis. IR/IR myelogram sp lumbar [id number] IMPRESSION: Lumbar myelogram contrast injection. Lumbar CT post myelogram to follow. High-grade stenosis at L4-5.
[2025-06-09] MEDS: iohexol 240 mg/mL 50 mL Btl 20 ML INTRATHECA (12:17)
== END 2025-06-09 08:40 | disposition home or self-care (01) ==
LOC: RAD 08:39
PROVIDERS: PCP Family Medicine; Visit Provider Orthopaedic Surgery
DX: M43.16 Spondylolisthesis, lumbar region (principal); M48.061 Spinal stenosis, lumbar region without neurogenic claudication; M85.88 Other specified disorders of bone density and structure, other site; M25.78 Osteophyte, vertebrae; M47.816 Spondylosis without myelopathy or radiculopathy, lumbar region; M48.07 Spinal stenosis, lumbosacral region; I70.0 Atherosclerosis of aorta; M96.1 Postlaminectomy syndrome, not elsewhere classified
CPT/HCPCS: 62304; 72132; J9999

== ENCOUNTER → 2025-06-12 12:49 | Outpatient (BNVA) | payer MEDICAID, SELFPAY | PROVIDERS: PCP Family Medicine; Visit Provider Orthopaedic Surgery | DX: M43.16 Spondylolisthesis, lumbar region (principal); M48.062 Spinal stenosis, lumbar region with neurogenic claudication; Z09 Encounter for follow-up examination after completed treatment for conditions other than malignant neoplasm | CPT/HCPCS: 99213 ==

== ENCOUNTER 2025-07-31 14:39 | Outpatient (RCR) | payer MEDICAID, SELFPAY | END 2025-08-01 23:59 | disposition home or self-care (01) | LOC: TPT 14:39 | PROVIDERS: Visit Provider Orthopaedic Surgery | DX: M54.9 Dorsalgia, unspecified (principal); G89.29 Other chronic pain | CPT/HCPCS: 97161 ==

== ENCOUNTER 2025-08-27 13:57 | Outpatient (RCR) | payer MEDICAID, SELFPAY | END 2025-08-31 23:59 | disposition home or self-care (01) | LOC: TPT 13:57 | PROVIDERS: Visit Provider Orthopaedic Surgery | DX: M54.9 Dorsalgia, unspecified (principal); G89.29 Other chronic pain | CPT/HCPCS: 97110; 97530 ==

== ENCOUNTER 2025-09-10 12:55 | Outpatient (RCR) | payer MEDICAID, SELFPAY | END 2025-10-01 23:59 | disposition home or self-care (01) | LOC: TPT 12:55 | PROVIDERS: Visit Provider Orthopaedic Surgery | DX: M54.9 Dorsalgia, unspecified (principal); G89.29 Other chronic pain | CPT/HCPCS: 97110; 97530 ==

== ENCOUNTER 2025-09-11 12:28 | Outpatient (CLI) | payer MEDICAID, SELFPAY ==
--- NOTE | 2025-09-11 12:38 | XR_ITS ---
WS: [id number] XR hip BI 2V wo/w pel [id number] REASON FOR EXAM: R HIP JOINT PAIN FINDINGS: Bilateral hips. The hips are symmetric. No fracture or focal bone lesion. The joint spaces are intact and relatively well preserved with mild subchondral sclerosis and osteophytosis of the acetabulum. XR/XR hip BI 2V wo/w pel [id number] IMPRESSION: Minimal osteoarthritis bilaterally.
== END 2025-09-11 12:29 | disposition home or self-care (01) ==
PROVIDERS: PCP Family Medicine; Visit Provider Family Medicine
DX: M48.062 Spinal stenosis, lumbar region with neurogenic claudication (principal)
CPT/HCPCS: 73521; 99213